=== PATIENT | male | born 1955 | race Caucasian/White ===

== ENCOUNTER 2016-03-07 23:09 | Emergency (ER) | payer BC, OTHER ==
[2016-03-07] MEDS ORDERED: LIDOCAINE 2% UROJECT 10 ML ONE (23:17)
[2016-03-07 23:37] LABS: URINE BILIRUBIN NEGATIVE (NEGATIVE); URINE BLOOD 1+ (NEGATIVE); URINE GLUCOSE (UA) NEGATIVE (NEGATIVE); URINE LEUKOCYTE ESTERASE NEGATIVE (NEGATIVE); URINE NITRITE NEGATIVE (NEGATIVE); URINE PROTEIN NEGATIVE (NEGATIVE); URINE UROBILINOGEN NORMAL (0-1 mg/dl)
[2016-03-07 23:38] LABS: URINE APPEARANCE CLEAR; URINE COLOR YELLOW
[2016-03-07 23:46] LABS: URINE EPITHELIAL CELLS 0-2 /hpf; URINE WBC 0-1 /hpf
== END 2016-03-08 00:56 | disposition home or self-care (01) ==
LOC: ED 23:09
DX: R33.9 Retention of urine, unspecified (principal); Z85.72 Personal history of non-Hodgkin lymphomas; J45.909 Unspecified asthma, uncomplicated; Z98.890 Other specified postprocedural states
CPT/HCPCS: 81001; 99283 ×2; 51702; A9270